=== PATIENT | female | born 1935 | race Caucasian/White ===

== ENCOUNTER 2017-02-23 05:33 | Inpatient (IN) | payer OTHER ==
[~2017-02-23] VITALS: Ht 160 cm; Wt 79.1 kg
[~2017-02-23 05:33] MED LIST: ASCORBIC ACID100 MG PO; ASPIRIN81 M1 PO; ASPIRIN81 M2 PO; AUGMENTIN; Aspirin E.C. PO; CALCIUM + VITA1 EACH PO; CALCIUM 500 +1 EACH PO; CALCIUM 600 +1 EAC4 PO; CARDIZEM60 MG PO; COUMADIN,JANTOVE5 MG PO; COUMADIN2 MG PO; COUMADIN4 MG PO; CYANOCOBAL1000 MCG/2 IM; DIGOX250 MCG PO; DILTIAZEM; DuoNeb IH; FISH OIL CONC1 EACH PO; FOLIC ACID0.4 MG PO; JANTOVEN5 MG PO; KLOR-CON M2020 MEQ PO; LANSOPRAZOLE15 MG PO; LASIX20 MG PO; LEVAQUIN750 MG PO; LIPITOR80 MG PO; LOPRESSOR25 MG PO; LOTREL 5/101 CAPSULE PO; METOPROLOL SUCC50 MG PO; METOPROLOL TART50 MG PO; NITROSTAT,NITR0.4 M1 SL; OMEPRAZOLE40 M1 PO; Oscal 500 w/Vitamin PO; PLAVIX75 MG PO; PRAVASTATIN SOD10 MG PO; Robitussin AC,Tussi- PO; Tylenol Regular Stre PO; VICODIN,LORT1 TABLET PO; WELCHOL625 MG PO; Zithromax PO; Zocor PO
[2017-02-23 06:08] VITALS: BP 112/82
[2017-02-23 06:35] LABS: INTER. NORMALIZED RATIO 1.2; PROTHROMBIN TIME 13.3 SEC (10.2-12.9)
[2017-02-23 06:37] LABS: PTT 30.5 SEC (25-37)
[2017-02-23 07:15] LABS: METH RESISTANT S AUREUS PCR NEGATIVE (NEGATIVE); PROBE CHECK PASS; SPECIMEN PROCESSING CONTROL PASS
[2017-02-23 11:35] VITALS: BP 137/73
[2017-02-23 15:40] VITALS: BP 137/76
[2017-02-23 16:16] LABS: HEMATOCRIT 37.6 % (36.0-46.0); MCH 29.3 PG (29.0-34.0); MCHC 32.4 G/DL (30.0-36.0); MCV 90.2 FL (83-99); MEAN PLAT.VOLUME 10.7 uM^3 (9.5-12.4); PLATELET COUNT 197 K/uL (156-360); RBC DIS.WIDTH-CV 15.6 % (11.8-14.6); RBC DIS.WIDTH-SD 51.7 % (39-53); RED BLOOD COUNT 4.17 M/uL (3.80-5.20); WHITE BLOOD COUNT 5.3 K/uL (4.1-10.2)
[2017-02-23 16:43] LABS: ANION GAP 10 MEQ/L (2-14); CHLORIDE 104 MEQ/L (99-109); GFR ESTIMATE (CALCULATED) > 59 mL/min/; GLUCOSE 146 mg/dL (70-99); POTASSIUM 3.8 MEQ/L (3.7-5.4); SAMPLE HEMOLYSIS CHECK 0; SAMPLE ICTERIC CHECK 0; SAMPLE LIPEMIA CHECK 0; SODIUM 142 MEQ/L (136-147); UREA NITROGEN (BUN) 15 mg/dL (9-23)
[2017-02-23 19:44] VITALS: BP 127/62
[2017-02-23 23:43] VITALS: BP 132/62
[2017-02-24 03:40] VITALS: BP 144/63
[2017-02-24 06:59] LABS: HEMATOCRIT 32.9 % (36.0-46.0); MCH 29.9 PG (29.0-34.0); MCHC 32.8 G/DL (30.0-36.0); MCV 91.1 FL (83-99); PLATELET COUNT 184 K/uL (156-360); RBC DIS.WIDTH-CV 15.8 % (11.8-14.6); RBC DIS.WIDTH-SD 53.2 % (39-53); RED BLOOD COUNT 3.61 M/uL (3.80-5.20); WHITE BLOOD COUNT 6.2 K/uL (4.1-10.2)
[2017-02-24 07:15] VITALS: BP 144/66
[2017-02-24 07:22] LABS: ANION GAP 7 MEQ/L (2-14); CHLORIDE 103 MEQ/L (99-109); GFR ESTIMATE (CALCULATED) > 59 mL/min/; INTER. NORMALIZED RATIO 1.1; POTASSIUM 3.4 MEQ/L (3.7-5.4); SAMPLE HEMOLYSIS CHECK 0; SAMPLE ICTERIC CHECK 0; SAMPLE LIPEMIA CHECK 0; SODIUM 141 MEQ/L (136-147); UREA NITROGEN (BUN) 12 mg/dL (9-23)
[2017-02-24 07:34] LABS: GLUCOSE 101 mg/dL (70-99)
[2017-02-24 12:20] VITALS: BP 140/62
[2017-02-24 16:40] VITALS: BP 123/59
[2017-02-24 19:00] VITALS: BP 127/57
[2017-02-25 00:21] VITALS: BP 137/65
[2017-02-25 04:33] VITALS: BP 110/50
[2017-02-25 06:45] VITALS: BP 135/65
[2017-02-25 06:56] LABS: HEMATOCRIT 30.3 % (36.0-46.0); MCH 29.6 PG (29.0-34.0); MCHC 32.7 G/DL (30.0-36.0); MCV 90.7 FL (83-99); PLATELET COUNT 159 K/uL (156-360); RBC DIS.WIDTH-CV 15.9 % (11.8-14.6); RED BLOOD COUNT 3.34 M/uL (3.80-5.20)
[2017-02-25 07:00] LABS: INTER. NORMALIZED RATIO 1.1; PROTHROMBIN TIME 11.6 SEC (10.2-12.9)
[2017-02-25 07:24] LABS: ANION GAP 6 MEQ/L (2-14); CHLORIDE 104 MEQ/L (99-109); GFR ESTIMATE (CALCULATED) > 59 mL/min/; GLUCOSE 82 mg/dL (70-99); POTASSIUM 3.3 MEQ/L (3.7-5.4); SAMPLE HEMOLYSIS CHECK 0; SAMPLE ICTERIC CHECK 0; SAMPLE LIPEMIA CHECK 0; SODIUM 139 MEQ/L (136-147); UREA NITROGEN (BUN) 18 mg/dL (9-23)
[2017-02-25] MEDS ORDERED: TRAMADOL HCL50 MG PO (08:50)
== END 2017-02-25 10:09 | disposition home or self-care (01) | DRG 747 ==
LOC: SDC 05:33 → 2SOUTH 09:20 → 2EAST 11:30 → SDC 16:10 → 2EAST 02-25 10:09
PROVIDERS: Nurse Practitioner Acute Care; Obstetrics & Gynecology Gynecologic Oncology
PROC: 0UBM0ZZ Excision of Vulva, Open Approach (ICD-10-PCS; principal; 2017-02-23)
DX: C51.9 Malignant neoplasm of vulva, unspecified (principal); I48.0 Paroxysmal atrial fibrillation; I10 Essential (primary) hypertension; E78.2 Mixed hyperlipidemia; K21.9 Gastro-esophageal reflux disease without esophagitis; Z79.01 Long term (current) use of anticoagulants; I25.2 Old myocardial infarction; Z87.891 Personal history of nicotine dependence
CPT/HCPCS: 80048; 80162; 85027; 85610; 85730; 87641; 88309; 88342 TC; J0131; J0690; J1100; J1170; J1650; J2405; J2765; J3010

== ENCOUNTER 2018-04-05 06:40 | Day surgery (SDC) | payer OTHER ==
[~2018-04-05] VITALS: Ht 160 cm; Wt 74.9 kg
[~2018-04-05 06:40] MED LIST changes: -COUMADIN4 MG PO; +COUMADIN5 MG PO; +DIGOX125 MCG PO; -DIGOX250 MCG PO; +TRAMADOL HCL50 MG PO; +ULTRAM50 MG PO
[2018-04-05 07:07] VITALS: BP 131/83
[2018-04-05 07:18] LABS: INTER. NORMALIZED RATIO 1.1
[2018-04-05 07:21] LABS: PTT 28.5 SEC (25-37)
[2018-04-05 12:10] VITALS: BP 123/70
[2018-04-05 12:40] VITALS: BP 118/55
== END 2018-04-05 13:00 | disposition home or self-care (01) ==
LOC: SDC 06:40
PROVIDERS: Obstetrics & Gynecology Gynecologic Oncology
DX: C51.9 Malignant neoplasm of vulva, unspecified (principal); R59.0 Localized enlarged lymph nodes; I10 Essential (primary) hypertension; I48.91 Unspecified atrial fibrillation; Z79.01 Long term (current) use of anticoagulants; I25.2 Old myocardial infarction; Z88.8 Allergy status to other drugs, medicaments and biological substances; Z87.891 Personal history of nicotine dependence
CPT/HCPCS: 85610; 85730; 86850; 86900; 86901; 86920; 87641; J0690; J1100; J1170; J2405; J3010; Q0175; S0020